=== PATIENT | female | born 1940 | race Two or more races ===

== ENCOUNTER 2022-10-26 09:44 | Emergency (ER) | payer OTHER ==
[~2022-10-26] VITALS: Ht 157.5 cm; Wt 83.9 kg
[2022-10-26] MEDS ORDERED: IRBESARTAN75 MG PO (10:05)
[2022-10-26] MEDS ORDERED: ATORVASTATIN CA10 MG PO (10:05)
[2022-10-26] MEDS ORDERED: HYDRALAZINE HCL10 MG PO (10:06)
[2022-10-26] MEDS ORDERED: TOPROL XL50 M1 PO (10:06)
[2022-10-26] MEDS ORDERED: GLIPIZIDE XL10 MG PO (10:06)
[2022-10-26] MEDS ORDERED: AMLODIPINE-OLM1 EACH PO (10:06)
[2022-10-26] MEDS ORDERED: SPIRONOLACTONE25 MG PO (10:07)
== END 2022-10-26 16:27 | disposition home or self-care (01) ==
LOC: ER 09:44
DX: R42 Dizziness and giddiness (principal)

== ENCOUNTER 2023-07-17 15:29 | Emergency (ER) | payer OTHER ==
[~2023-07-17] VITALS: Ht 162.6 cm; Wt 81.6 kg
[~2023-07-17 15:29] MED LIST: AMLODIPINE-OLM1 EACH PO; ATORVASTATIN CA10 MG PO; GLIPIZIDE XL10 MG PO; HYDRALAZINE HCL10 MG PO; IRBESARTAN75 MG PO; SPIRONOLACTONE25 MG PO; TOPROL XL50 M1 PO
[2023-07-17] MEDS ORDERED: KETOROLAC TROMETHAMINE 30 MG VIAL IV ONE (16:45)
[2023-07-17] MEDS ORDERED: ONDANSETRON HCL 2 MG/ML VIAL IV ONE (16:45)
[2023-07-17] MEDS ORDERED: FAMOTIDINE/PF 20 MG/2 ML VIAL IV PUSH ONE (16:45)
[2023-07-17 17:04] LABS: HEMATOCRIT 41.6 % (36.0-45.00); HEMOGLOBIN 13.9 g/dL (12.0-15.00); MEAN CELL VOLUME 90.7 fL (80.00-100.00); MEAN CORPUSCULAR HEMOGLOBIN 30.3 pg (27.00-32.0); MEAN CORPUSCULAR HGB CONC 33.4 g/dl (32.0-36.0); PLATELET COUNT 200 K/uL (150-450); RED BLOOD COUNT 4.58 M/uL (4.00-6.00); RED CELL DISTRIBUTION WIDTH 13.3 % (11.5-14.5)
== END 2023-07-17 23:30 | disposition home or self-care (01) ==
LOC: ER 15:29
PROVIDERS: Emergency Medicine
DX: K29.70 Gastritis, unspecified, without bleeding (principal); I10 Essential (primary) hypertension; E11.9 Type 2 diabetes mellitus without complications; Z79.84 Long term (current) use of oral hypoglycemic drugs; Z20.822 Contact with and (suspected) exposure to COVID-19
CPT/HCPCS: 36415; 93005; 96365; 99283; J1885; J2405; J3490

== ENCOUNTER 2024-05-05 15:09 | Outpatient (CLI) | payer OTHER | END 2024-05-05 15:16 | disposition home or self-care (01) | LOC: SONOGRAMA 15:09 | DX: E05.40 Thyrotoxicosis factitia without thyrotoxic crisis or storm (principal) ==

== ENCOUNTER 2024-05-10 11:45 | Outpatient (CLI) | payer OTHER | END 2024-05-10 11:47 | disposition home or self-care (01) | LOC: LAB 11:45 | DX: E05.40 Thyrotoxicosis factitia without thyrotoxic crisis or storm (principal) ==

== ENCOUNTER 2024-05-12 10:20 | Outpatient (CLI) | payer OTHER | END 2024-05-12 11:07 | disposition home or self-care (01) | LOC: SONOGRAMA 10:20 | PROVIDERS: ATTEND Pathology Anatomic Pathology & Clinical Pathology | DX: E04.1 Nontoxic single thyroid nodule (principal); D34 Benign neoplasm of thyroid gland; E07.89 Other specified disorders of thyroid ==

== ENCOUNTER → 2024-06-30 08:35 | Outpatient (CLI) | payer OTHER ==
[2024-06-30 09:19] LABS: HEMATOCRIT 39.5 % (36.0-45.00); HEMOGLOBIN 13.3 g/dL (12.0-15.00); MEAN CELL VOLUME 88.9 fL (80.00-100.00); MEAN CORPUSCULAR HGB CONC 33.8 g/dl (32.0-36.0); PLATELET COUNT 166 K/uL (150-450); RED BLOOD COUNT 4.45 M/uL (4.00-6.00); RED CELL DISTRIBUTION WIDTH 14.2 % (11.5-14.5)
[2024-06-30 11:09] LABS: ALBUMIN 3.6 gm/dL (3.4-5.0); ALKALINE PHOSPHATASE 114 U/L (50-136); ALT/SGPT 14 U/L (12-78); ANION GAP 6 (10.0-20.0); AST/SGOT 16 U/L (15-37); BILIRUBIN TOTAL 0.68 mg/dL (0.3-1.2); BLOOD UREA NITROGEN 22 mg/dL (7-18); BUN CREA RATIO 27 (7.0-25.0); CALCIUM 9.7 mg/dL (8.5-10.1); CARBON DIOXIDE 31 mEq/L (21-32); CHLORIDE 110 mmol/L (98-107); CREATININE SERUM 0.81 mg/dL (0.55-1.02); GFR 67.69; GLOBULINA 3.2 G/DL (2.4-3.5); GLUCOSE FASTING 142 mg/dL (65-100); OSMOLALITY SERUM 289 MOSM/KG (275-295); POTASSIUM 4.69 mEq/L (3.5-5.1); SODIUM 142 mmol/L (136-145); TOTAL PROTEIN 6.8 gm/dL (6.4-8.2)
[2024-06-30 18:10] LABS: T4 FREE 1.26 NG/ML (0.76-1.46); T4 TOTAL 10.82 UG/DL (4.8-13.9)
[2024-06-30 18:13] LABS: TSH < 0.005 uIU/mL (0.358-3.74)
== END | disposition home or self-care (01) ==
LOC: LAB 08:35
PROVIDERS: ATTEND Internal Medicine
DX: E05.90 Thyrotoxicosis, unspecified without thyrotoxic crisis or storm (principal); I10 Essential (primary) hypertension; E11.65 Type 2 diabetes mellitus with hyperglycemia

== ENCOUNTER → 2024-06-30 | Outpatient (CLI) | payer OTHER | END | disposition home or self-care (01) | LOC: SONOGRAMA 09:07 | PROVIDERS: ATTEND Internal Medicine Hematology & Oncology | DX: D72.819 Decreased white blood cell count, unspecified (principal); E66.9 Obesity, unspecified ==

== ENCOUNTER 2024-07-12 08:34 | Outpatient (CLI) | payer OTHER ==
[2024-07-12 09:32] LABS: PH,URINE 6.5 (5.0-8.0); URINE APPEARANCE Clear; URINE BILIRRUBIN Negative (NEGATIVE); URINE COLOR Yellow; URINE GLUCOSE Negative (NEGATIVE); URINE KETONE Negative (NEGATIVE); URINE LEUKOCYTE Trace; URINE NITRATE Negative; URINE PROTEIN Negative (NEGATIVE); URINE UROBILINOGEN 0.2 E.U./dl
[2024-07-12 09:36] LABS: URINE BACTERIA 25.6 uL (0.0-1933); URINE EPITHELIAL CELLS 14.8 uL (0.0-38.8); URINE RBC 47.1 uL (0.0-20.8); URINE WBC 11.2 uL (0.0-23.2)
[2024-07-12 09:39] LABS: URINE BLOOD TRACE
[2024-07-12 10:00] LABS: HEMATOCRIT 38.6 % (36.0-45.00); HEMOGLOBIN 13.1 g/dL (12.0-15.00); MEAN CELL VOLUME 89.7 fL (80.00-100.00); MEAN CORPUSCULAR HEMOGLOBIN 30.4 pg (27.00-32.0); MEAN CORPUSCULAR HGB CONC 33.9 g/dl (32.0-36.0); PLATELET COUNT 160 K/uL (150-450)
[2024-07-12 11:13] LABS: ALBUMIN 3.7 gm/dL (3.4-5.0); BILIRUBIN TOTAL 0.6 mg/dL (0.3-1.2); CALCIUM 9.6 mg/dL (8.5-10.1); CREATININE SERUM 0.86 mg/dL (0.55-1.02); GFR 63.17; POTASSIUM 4.4 mEq/L (3.5-5.1); TOTAL PROTEIN 6.7 gm/dL (6.4-8.2)
[2024-07-12 12:06] LABS: FOLIC ACID > 20.00 ng/ml (4.78-20)
[2024-07-12 12:57] LABS: PLATELET ESTIMATE NORMAL (NORMAL)
[2024-07-14 07:08] LABS: hav igm Negative (Negative); hcv Non Reactive (Non Reactive); hep b c Negative (Negative); hep b s ag Negative (Negative)
== END 2024-07-12 08:44 | disposition home or self-care (01) ==
LOC: LAB 08:34
PROVIDERS: ATTEND Internal Medicine Hematology & Oncology
DX: E66.9 Obesity, unspecified (principal); N39.0 Urinary tract infection, site not specified; D51.9 Vitamin B12 deficiency anemia, unspecified; D72.819 Decreased white blood cell count, unspecified; B18.9 Chronic viral hepatitis, unspecified; Z11.59 Encounter for screening for other viral diseases

== ENCOUNTER 2024-11-09 07:38 | Outpatient (CLI) | payer OTHER | END 2024-11-09 07:43 | disposition home or self-care (01) | LOC: SONOGRAMA 07:38 | PROVIDERS: ATTEND Urology | DX: R31.21 Asymptomatic microscopic hematuria (principal) ==

== ENCOUNTER 2025-01-03 10:41 | Emergency (ER) | payer OTHER ==
[~2025-01-03] VITALS: Ht 152.4 cm; Wt 79.4 kg
[2025-01-03] MEDS ORDERED: 0.9 % SODIUM CHLORIDE 1,000 ML IV SCH (11:15)
[2025-01-03] MEDS ORDERED: ONDANSETRON HCL 2 MG/ML VIAL IV STA (11:33)
[2025-01-03 11:46] LABS: BASO % 0.5 % (0.1-1.2); EOS # 0.04 (0.04-0.54); EOS % 0.7 % (0.7-7.0); LYMPH # 1.26 (1.18-3.74); LYMPH % 22.1 % (19.3-53.1); MEAN PLATELET VOLUME 10.50 fl (9.4-12.4); MONO # 0.33 (0.24-0.82); MONO % 5.8 % (4.7-12.5); NEUT # 4.00 (1.56-6.13); NEUT % 70.0 % (34.0-71.1); RED CELL DISTRIBUTION WIDTH 13.4 % (11.6-14.4)
[2025-01-03 12:03] LABS: BUN CREA RATIO 20.0 (7.0-25.0); CREATININE SERUM 1.02 mg/dL (0.55-1.02); GFR 51.75; OSMOLALITY SERUM 292.0 MOSM/KG (275-295)
[2025-01-03 12:06] LABS: GLUCOSE FASTING 277.0 mg/dL (65-100)
[2025-01-03 12:32] LABS: URINE APPEARANCE Clear; URINE BILIRRUBIN Negative (NEGATIVE); URINE BLOOD Negative; URINE COLOR Yellow; URINE KETONE Negative (NEGATIVE); URINE LEUKOCYTE Negative; URINE NITRATE Negative; URINE PROTEIN Negative (NEGATIVE); URINE UROBILINOGEN 0.2 E.U./dl
[2025-01-03 12:36] LABS: URINE BACTERIA 2640.0 uL (0.0-1933); URINE EPITHELIAL CELLS 2.4 uL (0.0-38.8); URINE RBC 26.2 uL (0.0-20.8); URINE WBC 14.1 uL (0.0-23.2)
[2025-01-03 12:39] LABS: URINE CAST 0.00 uL (0.0-1.40); URINE GLUCOSE 500 MG/DL (NEGATIVE)
== END 2025-01-03 14:44 | disposition home or self-care (01) ==
LOC: ER 10:41
PROVIDERS: Emergency Medicine
DX: R42 Dizziness and giddiness (principal); I10 Essential (primary) hypertension; E11.9 Type 2 diabetes mellitus without complications
CPT/HCPCS: 36415; 96365; 96366; 99282; J2405; J7030